=== PATIENT | male | born 1980 | race Caucasian/White ===

== ENCOUNTER 2020-02-23 16:30 | Outpatient (RCR) | payer OTHER, SELFPAY ==
--- NOTE | 2020-02-09 17:01 | HP.PTEVAL_ITS ---
Patient's Visit Information MAYTE GIRON is a 39 year old M referred to Physical Therapy by Dr. Juliet Sagastume MD with a diagnosis of L shoulder tendonitis. Date of Evaluation: 02/09/20 Physical Therapist: Pedro Luis Lang PT, ATC - Visit Plan Frequency: 2x /Week Duration: 2 Weeks Plan: 4 visits to issue and instruct on HEP for rotator cuff strengthening and scap stab ex's - Subjective Pt reports L shoulder has been sore for approximately one month. Pt reports he strained it at that time and he has been sore since. Pt reports his shoulder catches at times and then it is OK afterwards. Pt reports he has mild pain most the time until he attempts specific movements. Pt notes he is unable to pull himself up like he used to do. Pt also notes sleep difficulty without the use of meds. Pt is R hand dominant. Pain is on the posterior aspect of L UE. Pt denies tingling or numbness in L UE at this time. Pt reports mowing his yard and driving increases his pain. 2/10 pain at rest, 10/10 pain at worst. - Pain L shoulder Pain Intensity (Out of 10): 2 Pain Intensity Range: 10 - Objective Neuro: B UE sensation is WNL to light touch. B bicepital reflex= 1/3. Palpation: Pt is a little sore along the distribution of the supraspinatus. No obvious deformity. ROM: R shoulder flex= 160, abd= 160, ER= 90, IR WNL; L shoulder flex= 150, abd= 125, ER= 75, IR minimally limited. MMT: L shoulder ER 4/5. All other B UE's 5/5 throughout. Special tests: pos empty can, Pos HK - Goals Goal 1:: I with HEP Goal Time Frame: 2-4 Weeks - Rehabilitation Potential Physical Therapy Diagnosis: L shoulder pain, weakness, and limited ROM secondary to impingement syndrome. Rehabilitation Potential: Good - Anticipated Interventions Patient/Client Instruction: Educate patient on: Condition, Plan of Care For the Purpose of:: To decrease pain, To increase ROM, To improve muscle performance and motor function Therapeutic Exercise to Include: Strength training, Active ROM, Scapular Strength/Stabilization For the Purpose of:: To decrease pain, To increase ROM, To improve muscle performance and motor function Cryotherapy (ice pack, ice massage): Yes For the Purpose of:: To decrease pain Thank you for the opportunity to evaluate your patient. For Medicare and Medicare HMO plans, please review the plan of care and approve it. It will need to be FAXED BACK to us at [phone] for Medicare purposes. For Medicare only, by signing this I certify the plan of care. Please let me know if there are questions or concerns regarding this plan of care. Physician Signature: Date :
--- NOTE | 2020-02-23 17:09 | HP.PTDCSUM ---
It has been my pleasure to treat MAYTE GIRON referred by Dr. Juliet Sagastume MD, with the diagnosis of L shoulder tendonitis for a total of 4 visit(s). Discharge Date: Please see the following information for a summary of their discharge status. Subjective: Pt ready for discharge L shoulder Pain Intensity (Out of 10): 1 Objective/Function: L shoulder pain minimal /10. L shoulder ROM: flex= 155, abd= 160, ER= 75. L shoulder MMT: 5/5 throughout. I with HEP Goal 1:: I with HEP Goal Progress: Goal Met Plan: Discharge If there are questions or concerns regarding this patient's physical therapy, please feel free to call me at [phone]. Thank you for the referral of this patient. Sincerely, Pedro Luis Lang, PT, ATC
== END 2020-02-23 19:00 | disposition home or self-care (01) ==
LOC: PT 16:30
PROVIDERS: PCP Family Medicine; Referring Provider Family Medicine; Visit Provider Family Medicine
DX: M77.9 Enthesopathy, unspecified (principal)
CPT/HCPCS: 97110; 97161; 97164

== ENCOUNTER → 2021-01-09 11:18 | Outpatient (CLI) | payer OTHER, SELFPAY ==
[2021-01-09 16:17] LABS: Vitamin B12 774 pg/mL (211-911)
[2021-01-09 16:30] LABS: Microalbumin,Random Urine < 5.0 mg/L (NO RANGE EST.)
[2021-01-09 16:39] LABS: Hemoglobin A1c 7.3 % (3.8-5.6)
[2021-01-09 16:41] LABS: ALB/GLOB Ratio 1.2 RATIO (0.9-2.4); AST(SGOT) 25 U/L (15-37); Alanine Aminotransfer ALT/SGPT 44 U/L (16-61); Albumin, Serum 4.5 g/dL (3.2-5.0); Alkaline Phosphatase 62 U/L (45-117); Anion Gap 7 (5-15); BUN 14 mg/dL (7-18); BUN/Creat Ratio 14.9 RATIO (10-20); Calcium,Total 10.2 mg/dL (8.5-10.1); Chloride 102 mmol/L (98-107); Cholesterol 185 mg/dL (200); Creatinine, Serum 0.94 mg/dL (0.70-1.30); EST Glomerular Filtration Rate 94 mL/min (>60); Est Glom Filt Rate - Afr Amer 113 mL/min (>60); Globulin 3.7 g/dL (2.2-4.2); Glucose 222 mg/dL (74-106); High Density Lipoprotein 50 mg/dL; Magnesium 2.4 mg/dL (1.6-2.6); Potassium 4.3 mmol/L (3.5-5.1); Protein, Total 8.2 g/dL (6.4-8.2); Sodium Level 137 mmol/L (136-145); Triglycerides 137 mg/dL; Very Low Density Lipoprotein 27 mg/dL (5-40)
== END ==
PROVIDERS: PCP Family Medicine; Visit Provider Family Medicine
DX: E11.9 Type 2 diabetes mellitus without complications (principal); R25.2 Cramp and spasm
CPT/HCPCS: 36415; 80053; 80061; 82043; 82570; 82607; 83036; 83735